=== PATIENT | female | born 1965 | race Two or more races ===

== ENCOUNTER 2025-09-28 11:50 | Day surgery (SDC) | payer OTHER, SELFPAY ==
[2025-09-27 09:43] VITALS: BMI 25.3
[2025-09-28] VITALS (15 sets, daily range): BP systolic 111–137; BP diastolic 58–85; PULSE 56–70; RESP 14–18; TEMP 36.2–36.6; O2SAT 96–100
[2025-09-28] MEDS: fentaNYL CIT INJ 50 mCg/ML AMP 2ML (ASD USE ONLY) IVP (12:33)
[2025-09-28] MEDS: RINGERS LACTATED 500 ML 500 ML 20 ML IV (12:33)
[2025-09-28] MEDS: MIDAZOLAM INJ 1 MG/ML VIAL 2 ML (ASD USE ONLY) 2 MG IVP (12:57)
== END 2025-09-28 14:06 | disposition home or self-care (01) ==
PROVIDERS: Referring Provider Surgery; Visit Provider Surgery
PROC: 0DBE8ZX Excision of Large Intestine, Via Natural or Artificial Opening Endoscopic, Diagnostic (ICD-10-PCS; CPT 45380; principal; 2025-09-28 13:45)
DX: D12.8 Benign neoplasm of rectum (principal); E11.9 Type 2 diabetes mellitus without complications; I10 Essential (primary) hypertension; E03.9 Hypothyroidism, unspecified; Z79.899 Other long term (current) drug therapy; Z79.84 Long term (current) use of oral hypoglycemic drugs; Z79.890 Hormone replacement therapy; R19.5 Other fecal abnormalities
CPT/HCPCS: 45385; A4649; J2250; J3010; J7120